=== PATIENT | female | born 1990 | race Caucasian/White ===

== ENCOUNTER 2023-12-26 10:23 | Emergency (ER) | payer BC, SELFPAY ==
--- NOTE | 2023-12-26 10:56 | ED.GENMED ---
History of Present Illness
<Silviano Cagle PA-C - Last Filed: 12/27/23 15:54>
General
Chief Complaint: Abdominal Pain
Source: patient
Time Seen by Provider: 12/26/23 10:23
History of Present Illness
History of Present Illness:
33-year-old female with past medical history of asthma presenting to the emergency department for evaluation of sudden onset abdominal pain described to be initially just below the bellybutton but now more within the right lower part of the abdomen,
started at 9 AM acutely but with no other symptoms. Patient denies any nausea or vomiting, bowel changes or urinary symptoms, vaginal bleeding, back or flank pain. She did take 600 mg of Advil with moderate relief but states the pain seems to
continue to wax and wane. Last menstrual period 3 weeks ago, does not believe. Has a history of ovarian cysts but unsure as to if this feels similar. Social history noncontributory. No surgical history
Past History
<Silviano Cagle PA-C - Last Filed: 12/27/23 15:54>
Past History
ED Past Medical History: Asthma
ED Past Surgical History: Other ([place] teeth)
Social History
Tobacco: Non-smoker
Alcohol: Occasional
Drug: None
Personal:
Living: with family
Employment: Employed
Family History
Family History: Other (Noncontributory)
Review of Systems
<Silviano Cagle PA-C - Last Filed: 12/27/23 15:54>
Review of Systems
All Other Systems: ROS reviewed and negative except as documented in HPI and ROS
Phy Exam
<Silviano Cagle PA-C - Last Filed: 12/27/23 15:54>
Physical Exam
Physical Exam:
GENERAL: Alert , in no apparent distress, appears uncomfortable, shaky
EYE: clear conjunctiva b/l
HEAD: NCAT
ENT: mmm.
CARDIAC: Regular rate and rhythm .
LUNGS: Clear breath sounds bilaterally, no acute respiratory distress, no wheezes/rales/rhonchi
ABDOMEN: Soft, mild ttp right mid abdomen, no r/g, no cvat, negative Duenas sign, no tenderness at McBurney's point
NEUROLOGICAL: Alert and oriented
SKIN: Warm and dry, skin intact.
MUSCULOSKELETAL: well perfused.
PSYCH: Normal and appropriate interaction.
Scores
<Silviano Cagle PA-C - Last Filed: 12/27/23 15:54>
Heart Failure Risk
Heart Failure Risk Score: Not Applicable
Heart Score for Chest Pain Patients
STEMI patient?: Not applicable
Withdrawal Assessment of Alcohol
Withdrawal Assessment Completed?: Not applicable
Course
<Silviano Cagle PA-C - Last Filed: 12/27/23 15:54>
Orders/Labs/Results
Orders:
Orders
12/26/23 10:54
0.9% Sodium Chloride 1000 ml [Nss] 1,000 ml IV BOLUS
Test Result ONCE
12/26/23 11:00
Complete Blood Count/With Diff Urgent
Comprehensive Metabolic Panel Urgent
HCG, Serum Qualitative Screen Urgent
Lipase Urgent
12/26/23 11:13
Urinalysis Reflex To Culture Urgent
Date Specimen was Collected: 12/26/23
Time Specimen was Collected: 11:00
12/26/23 11:48
CT Abd/pel Without Iv Or Oral Urgent
Comment:
Reason For Exam: sudden onset right mid abd pain
12/26/23 13:13
Iohexol [Omnipaque] See Protocol PO NOW STA
12/26/23 13:27
CT Chest/abd/pel W Iv Cont Urgent
Comment:
Reason For Exam: further delineate lymphadenopathy on non-con CT
12/26/23 13:36
Ondansetron Injectable [Zofran] 4 mg IV NOW STA
Abnormal Lab Results
12/26/23
11:00
WBC 4.7 L 10^3/uL
(4.8-10.8)
MCH 31.5 H pg
(27.0-31.0)
Absolute Lymphs (auto) 1.0 L 10^3/uL
(1.2-3.4)
12/26/23 11:00
12/26/23 11:00
Vital Signs
Initial and Last Documented VS:
Initial Vital Signs
Temp Pulse Resp Pulse Ox
98.0 F 75 16 98
12/26/23 10:24 12/26/23 10:24 12/26/23 10:24 12/26/23 10:24
Last Documented Vital Signs
Temp Pulse Resp BP Pulse Ox
98.0 F 71 18 124/74 98
12/26/23 10:24 12/26/23 15:39 12/26/23 15:39 12/26/23 15:39 12/26/23 15:39
munira;Arnaud Crespo, DO - Last Filed: 12/26/23 13:26>
Orders/Labs/Results
Orders:
Orders
12/26/23 10:54
0.9% Sodium Chloride 1000 ml [Nss] 1,000 ml IV BOLUS
Test Result ONCE
12/26/23 11:00
Complete Blood Count/With Diff Urgent
Comprehensive Metabolic Panel Urgent
HCG, Serum Qualitative Screen Urgent
Lipase Urgent
12/26/23 11:13
Urinalysis Reflex To Culture Urgent
Date Specimen was Collected: 12/26/23
Time Specimen was Collected: 11:00
12/26/23 11:48
CT Abd/pel Without Iv Or Oral Urgent
Comment:
Reason For Exam: sudden onset right mid abd pain
12/26/23 13:13
Iohexol [Omnipaque] See Protocol PO NOW STA
12/26/23 13:27
CT Chest/abd/pel W Iv Cont Urgent
Comment:
Reason For Exam: further delineate lymphadenopathy on non-con CT
12/26/23 13:36
Ondansetron Injectable [Zofran] 4 mg IV NOW STA
Abnormal Lab Results
12/26/23
11:00
WBC 4.7 L 10^3/uL
(4.8-10.8)
MCH 31.5 H pg
(27.0-31.0)
Absolute Lymphs (auto) 1.0 L 10^3/uL
(1.2-3.4)
12/26/23 11:00
12/26/23 11:00
Vital Signs
Initial and Last Documented VS:
Initial Vital Signs
Temp Pulse Resp Pulse Ox
98.0 F 75 16 98
12/26/23 10:24 12/26/23 10:24 12/26/23 10:24 12/26/23 10:24
Last Documented Vital Signs
Temp Pulse Resp BP Pulse Ox
98.0 F 71 18 124/74 98
12/26/23 10:24 12/26/23 15:39 12/26/23 15:39 12/26/23 15:39 12/26/23 15:39
<Silviano Cagle PA-C - Last Filed: 12/27/23 15:54>
MDM/Problems Addressed
Differential Diagnosis Includes:
Ovarian cyst, ovarian torsion, , renal/ureteral colic, appendicitis, cholecystitis
MDM/Problems Addressed:
33-year-old female presenting to the emergency department for evaluation of sudden onset right-sided abdominal pain that began acutely at 9 AM, somewhat improved with Advil, reports feels better now but still with pain. No other GI related
symptoms. Patient declining anything for pain or nausea presently. Will check labs and urine. Will order imaging based off urine results. If there is microscopic hematuria my suspicion ureteral colic/kidney stone is high. If this is negative
given patient's history of ovarian cyst will send for stat ultrasound to rule out torsion. Will continue to reassess
<Silviano Cagle PA-C - Last Filed: 12/27/23 15:54>
*Pulse Oximetry
Patient hypoxic: no
*Critical Care Note
Total Time (30-74mins, 75-104mins- exclusive of procedures): Not Applicable
<Silviano Cagle PA-C - Last Filed: 12/27/23 15:54>
Patient Management
Discussion with other providers: Radiologist
Escalation/DeEscalation of care consider admission/obs:
Initial CT findings noted. Case d/w radiology who recommends obtaining CT scan chest abd/pelvis with oral and IV contrast for further evaluation.
Patient's repeat CT scans shows a 4 and half centimeter complex predominantly cystic mass in the right adnexa which is probably a complex functional cyst. I suspect this is the main cause for the patient's pain earlier this morning. There are no
other signs of lymphadenopathy and this was likely due to prominence of venous structures as noted by radiology. Patient was also informed of the suspected hemangioma. Printout of CT report was provided to the patient. Advise close follow-up for
ultrasound of the pelvis with [facility] or primary care provider within the next few months to ensure resolution of the ovarian cyst. Aware of return precautions to the ER. Stable for discharge home.
ED Attending Note
<Silviano Cagle PA-C - Last Filed: 12/27/23 15:54>
-
Portions of this chart may have been created with voice recognition software.� Occasional wrong word or��sound alike� substitutions may have occurred due to the inherent limitations of voice recognition software.
<Arnaud Crespo DO - Last Filed: 12/26/23 13:26>
ED Attending Note
Patient seen and examined by attending physician: Yes
I performed the substantive portion of visit, reviewed & personally made and approve the management plan that is documented in note by myself or SEBLE.: Yes
ED Attending Note:
I agree with Dawood's note
33-year-old female presents with sudden onset of abdominal pain at 9 AM. 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 Pain is gone now but was quite significant at the time. It started without any obvious exacerbating
factor. Pain caused her to double over and she was nauseous. Patient denies any recent patient denies any recent unexpected weight loss or weight gain. Denies any night sweats. Denies any adenopathy that she has noticed. No recent illnesses.
General: Awake, Alert, Oriented X3. No acute distress.
Vitals: unremarkable
Head: Atraumatic
Eyes: Pupils equal, EOMI
Throat: Airway intact, no exudates
Neck: Trachea midline
Lungs: Clear and equal b/l
Heart: Regular rate, no murmurs
Abd: Soft, Nontender, No pulsatile mass
Back: No CVA tenderness to percussion
Neuro: Nonfocal
Skin: Warm, dry, no rash
No lymphadenopathy noted in axilla, inguinal, clavicular regions
Extremities: pulses equal b/l, no edema
CT shows no evidence of a stone. Patient is noted to have what appears to be increased lymphatic tissue retroperitoneally. Noncontrast study is a bit limited. Radiologist raises the possibility of metastatic disease or lymphoma. We will obtain a
CT of the chest abdomen and pelvis with IV and oral contrast based upon Dr. Donahue's recommendations.
Discharge Plan
Departure
Patient Disposition: Home (Routine Discharge)
Date of Disposition: 12/26/23
Time of Disposition: 16:54
Patient with high blood pressure during this ER visit?: No
Discharge Problem:
Ovarian cyst, right
Instructions: Ovarian Cyst (DC)
Referrals:
NONE,* [Family Provider] -
Interventions
Interventions:
*Risk Screen - Suicide Last Done: 12/26/23 10:24
*General Assessment Last Done: 12/26/23 10:59
*Neglect/Abuse Screening Last Done: 12/26/23 10:24
ED- Fall Risk Assessment Last Done: 12/26/23 10:59
*Nursing Disposition Last Done: 12/26/23 17:10
HT-Wwzsqg-Lolqhlkwyz Assessment Last Done: 12/26/23 10:59
Discharge Date and Time
Discharge Date/Time: 12/26/23 17:11
Print Language: VINCENTIAN
[2023-12-26] MEDS: NSS 1000 IV (11:02)
[2023-12-26 11:23] LABS: % Basophils 1.9 % (0-2); % Eosinophils 1.3 % (0-6); % Immature Granulocytes 0.2 % (0-0.5); % Lymphocytes 22.2 % (20.5-51.1); % Neutrophils 66.4 % (42.2-75.2); Absolute Basophils 0.1 10^3/uL (0-0.2); Absolute Eosinophils 0.1 10^3/uL (0-0.7); Absolute Monocytes 0.4 10^3/uL (0.1-0.6); Absolute Neutrophils 3.1 10^3/uL (1.4-6.5); Hematocrit 38.9 % (37.0-47.0); Hemoglobin 13.9 g/dL (12.0-16.0); Mean Corp Hgb Conc. 35.7 g/dL (33.0-37.0); Mean Corpuscular Hgb 31.5 pg (27.0-31.0); Mean Corpuscular Volume 88.2 fL (81.0-99.0); Nucleated Red Blood Cells % 0 %; Platelet Count 241 10^3/uL (130-400); Red Blood Cell Count 4.41 10^6/uL (4.20-5.40); Red Cell Dist. Width 11.8 % (11.5-14.5); White Blood Cell Count 4.7 10^3/uL (4.8-10.8)
[2023-12-26 11:33] LABS: Urine Albumin Negative (Neg - Trace); Urine Bilirubin Negative (Negative); Urine Character Clear (Clear); Urine Color Yellow; Urine Glucose Negative (Negative); Urine Ketone Negative (Negative); Urine Leukocyte Negative (Negative); Urine Nitrite Negative (Negative); Urine Occult Blood Negative (Negative); Urine Urobilinogen Negative (Neg - 1+)
[2023-12-26 11:44] LABS: HCG, Serum Qualitative Screen Negative
[2023-12-26 11:47] LABS: ALT (SGPT) 16 U/L (0-35); AST (SGOT) 27 U/L (14-36); Albumin 4.7 g/dl (3.5-5.0); Alkaline Phosphatase 51 U/L (38-126); Blood Urea Nitrogen 8 mg/dl (7-17); Calcium 9.7 mg/dl (8.4-10.2); Carbon Dioxide 29 mmol/L (22-30); Chloride 102 mmol/L (98-107); Glucose 86 mg/dl (70-99); Lipase 111 U/L (23-300); Potassium 3.8 mmol/L (3.5-5.1); Sodium 141 mmol/L (135-145); Total Bilirubin 0.7 mg/dl (0.2-1.3); eGFR > 60.00
[2023-12-26 13:09] VITALS: BP 123/74
[2023-12-26] MEDS: OMNIPAQUE 50 ML PO (13:34)
[2023-12-26] MEDS: ZOFRAN 4 MG IV (13:41)
[2023-12-26 15:39] VITALS: BP 124/74
== END 2023-12-26 17:11 | disposition home or self-care (01) ==
LOC: EMR 10:23
PROVIDERS: Physician Assistant Medical; EMERGENCY PHYSICIAN Emergency Medicine
DX: N83.201 Unspecified ovarian cyst, right side (principal); J45.909 Unspecified asthma, uncomplicated
CPT/HCPCS: 99284; 96374; 96361; 71260; 74176; 74177; 80053; 81003; 83690; 84703; 85025; Q9967